=== PATIENT | male | born 1945 | race Caucasian/White ===

== ENCOUNTER 2018-04-17 00:56 | Outpatient (CLI) | payer MEDICARE, BC, SELFPAY ==
[2018-04-17 11:36] LABS: Abs Immature Grans 0.01 k/cumm (0.0-0.09); Absolute Basophil Count 0.03 k/cumm (0.0-0.2); Absolute Eosinophil Count 0.29 k/cumm (0.0-0.7); Absolute Lymphocyte Count 2.02 k/cumm (1.2-3.4); Absolute Monocyte Count 0.85 k/cumm (0.11-0.7); Absolute Neutrophil Count 4.29 k/cumm (1.2-6.7); Basophils % 0.4; Eosinophils % 3.9; HCT 45.5 % (40.0-50.0); Immature Grans % 0.1; Mean Corp. HGB Concentration 35.2 g/dL (32.0-36.0); Mean Corpuscular Hemoglobin 33.8 pg (27.0-33.0); Mean Corpuscular Volume 96.2 fL (80-95); Mean Platelet Volume 9.5 fL (8.0-11.0); Monocytes % 11.3; Neutrophils % 57.3; Platelet Count 246 x1000/uL (130-400); RBC 4.73 m/cumm (4.50-6.00); RBC Distribution Width 12.4 % (11.8-14.1); White Blood Cell Count 7.49 k/cumm (4.4-10.8)
[2018-04-17 12:16] LABS: ALT 37 U/L (12-78); AST 26 U/L (15-37); Albumin 3.2 g/dL (3.4-5.0); Alkaline Phosphatase 69 U/L (46-116); Anion Gap 7.2 mmol/L (3-11); BUN 12 mg/dL (7-18); Bilirubin, Total 0.6 mg/dL (0.2-1.0); CO2 29.8 mmol/L (21.0-32.0); CREATININE 1.07 mg/dL (0.70-1.30); Calcium 8.5 mg/dL (8.5-10.1); Chloride 100 mmol/L (98-107); Glucose 105 mg/dL (70-100); Potassium 3.7 mmol/L (3.5-5.1); Sodium 137 mmol/L (136-145); Total Protein 6.4 g/dL (6.4-8.2)
== END 2018-04-17 01:16 ==
PROVIDERS: PCP Emergency Medicine; Visit Provider Internal Medicine
DX: M05.9 Rheumatoid arthritis with rheumatoid factor, unspecified (principal); Z79.899 Other long term (current) drug therapy
CPT/HCPCS: 36415; 80053; 85025

== ENCOUNTER 2018-07-15 10:16 | Outpatient (CLI) | payer MEDICARE, BC, SELFPAY ==
[2018-07-15 14:01] LABS: Abs Immature Grans 0.04 k/cumm (0.0-0.09); Absolute Basophil Count 0.05 k/cumm (0.0-0.2); Absolute Eosinophil Count 0.42 k/cumm (0.0-0.7); Absolute Lymphocyte Count 2.13 k/cumm (1.2-3.4); Absolute Monocyte Count 0.98 k/cumm (0.11-0.7); Absolute Neutrophil Count 5.67 k/cumm (1.2-6.7); Basophils % 0.5; Eosinophils % 4.5; HCT 48.7 % (40.0-50.0); HGB 16.9 g/dL (13.5-17.5); Immature Grans % 0.4; Lymphocytes % 22.9; Mean Corp. HGB Concentration 34.7 g/dL (32.0-36.0); Mean Corpuscular Hemoglobin 33.6 pg (27.0-33.0); Mean Corpuscular Volume 96.8 fL (80-95); Mean Platelet Volume 9.9 fL (8.0-11.0); Monocytes % 10.5; Neutrophils % 61.2; Platelet Count 205 x1000/uL (130-400); RBC 5.03 m/cumm (4.50-6.00); White Blood Cell Count 9.29 k/cumm (4.4-10.8)
[2018-07-15 15:12] LABS: ALT 44 U/L (12-78); AST 29 U/L (15-37); Albumin 3.7 g/dL (3.4-5.0); Alkaline Phosphatase 70 U/L (46-116); Anion Gap 11.5 mmol/L (3-11); BUN 9 mg/dL (7-18); Bilirubin, Total 0.8 mg/dL (0.2-1.0); CO2 26.5 mmol/L (21.0-32.0); CREATININE 1.07 mg/dL (0.70-1.30); Calcium 9.4 mg/dL (8.5-10.1); Chloride 101 mmol/L (98-107); Glucose 97 mg/dL (70-100); Potassium 3.8 mmol/L (3.5-5.1); Sodium 139 mmol/L (136-145); Total Protein 7.1 g/dL (6.4-8.2)
== END 2018-07-15 10:36 ==
LOC: LBN 10:27 → LBO 13:21
PROVIDERS: PCP Emergency Medicine; Visit Provider Internal Medicine
DX: M05.9 Rheumatoid arthritis with rheumatoid factor, unspecified (principal); Z79.899 Other long term (current) drug therapy
CPT/HCPCS: 36415; 80053; 85025

== ENCOUNTER 2018-10-01 02:27 | Outpatient (CLI) | payer MEDICARE, BC, SELFPAY ==
[2018-10-01 14:58] LABS: Abs Immature Grans 0.02 k/cumm (0.0-0.09); Absolute Basophil Count 0.03 k/cumm (0.0-0.2); Absolute Lymphocyte Count 2.38 k/cumm (1.2-3.4); Absolute Monocyte Count 0.76 k/cumm (0.11-0.7); Absolute Neutrophil Count 4.82 k/cumm (1.2-6.7); Basophils % 0.4; Eosinophils % 3.6; HCT 45.6 % (40.0-50.0); HGB 16.3 g/dL (13.5-17.5); Immature Grans % 0.2; Lymphocytes % 28.6; Mean Corp. HGB Concentration 35.7 g/dL (32.0-36.0); Mean Corpuscular Hemoglobin 34.2 pg (27.0-33.0); Mean Corpuscular Volume 95.6 fL (80-95); Mean Platelet Volume 9.4 fL (8.0-11.0); Monocytes % 9.1; Neutrophils % 58.1; Platelet Count 248 x1000/uL (130-400); RBC 4.77 m/cumm (4.50-6.00); RBC Distribution Width 12.2 % (11.8-14.1); White Blood Cell Count 8.31 k/cumm (4.4-10.8)
[2018-10-01 16:52] LABS: ALT 50 U/L (12-78); AST 38 U/L (15-37); Albumin 3.4 g/dL (3.4-5.0); Alkaline Phosphatase 69 U/L (46-116); Anion Gap 8.4 mmol/L (3-11); BUN 11 mg/dL (7-18); Bilirubin, Total 0.6 mg/dL (0.2-1.0); CO2 29.6 mmol/L (21.0-32.0); CREATININE 1.06 mg/dL (0.70-1.30); Calcium 8.7 mg/dL (8.5-10.1); Chloride 96 mmol/L (98-107); Glucose 105 mg/dL (70-100); Potassium 3.8 mmol/L (3.5-5.1); Sodium 134 mmol/L (136-145); Total Protein 6.8 g/dL (6.4-8.2)
== END 2018-10-01 02:47 ==
PROVIDERS: PCP Emergency Medicine; Visit Provider Internal Medicine
DX: M05.9 Rheumatoid arthritis with rheumatoid factor, unspecified (principal); Z79.899 Other long term (current) drug therapy
CPT/HCPCS: 36415; 80053; 85025

== ENCOUNTER 2018-12-24 02:07 | Outpatient (CLI) | payer MEDICARE, BC, SELFPAY ==
[2018-12-24 14:09] LABS: Abs Immature Grans 0.02 k/cumm (0.0-0.09); Absolute Basophil Count 0.04 k/cumm (0.0-0.2); Absolute Eosinophil Count 0.18 k/cumm (0.0-0.7); Absolute Lymphocyte Count 2.42 k/cumm (1.2-3.4); Basophils % 0.4; HCT 45.7 % (40.0-50.0); HGB 16.2 g/dL (13.5-17.5); Immature Grans % 0.2; Lymphocytes % 26.4; Mean Corp. HGB Concentration 35.4 g/dL (32.0-36.0); Mean Corpuscular Hemoglobin 33.8 pg (27.0-33.0); Mean Corpuscular Volume 95.4 fL (80-95); Mean Platelet Volume 9.3 fL (8.0-11.0); Monocytes % 10.9; Neutrophils % 60.1; Platelet Count 293 x1000/uL (130-400); RBC 4.79 m/cumm (4.50-6.00); RBC Distribution Width 12.6 % (11.8-14.1); White Blood Cell Count 9.16 k/cumm (4.4-10.8)
[2018-12-24 15:45] LABS: ALT 52 U/L (12-78); AST 34 U/L (15-37); Albumin 3.4 g/dL (3.4-5.0); Alkaline Phosphatase 78 U/L (46-116); Anion Gap 6.6 mmol/L (3-11); BUN 11 mg/dL (7-18); Bilirubin, Total 0.6 mg/dL (0.2-1.0); CO2 29.4 mmol/L (21.0-32.0); CREATININE 1.06 mg/dL (0.70-1.30); Calcium 8.8 mg/dL (8.5-10.1); Chloride 97 mmol/L (98-107); Glucose 90 mg/dL (70-100); Potassium 4.1 mmol/L (3.5-5.1); Sodium 133 mmol/L (136-145); Total Protein 6.8 g/dL (6.4-8.2)
== END 2018-12-24 02:27 ==
PROVIDERS: PCP Emergency Medicine; Visit Provider Internal Medicine
DX: M05.9 Rheumatoid arthritis with rheumatoid factor, unspecified (principal); Z79.899 Other long term (current) drug therapy
CPT/HCPCS: 36415; 80053; 85025

== ENCOUNTER 2019-04-08 09:17 | Outpatient (CLI) | payer MEDICARE, BC, SELFPAY ==
[2019-04-08 12:43] LABS: Abs Immature Grans 0.01 k/cumm (0.0-0.09); Absolute Basophil Count 0.03 k/cumm (0.0-0.2); Absolute Eosinophil Count 0.18 k/cumm (0.0-0.7); Absolute Lymphocyte Count 2.02 k/cumm (1.2-3.4); Absolute Monocyte Count 0.72 k/cumm (0.11-0.7); Absolute Neutrophil Count 4.15 k/cumm (1.2-6.7); Basophils % 0.4; Eosinophils % 2.5; HCT 48.7 % (40.0-50.0); HGB 16.7 g/dL (13.5-17.5); Immature Grans % 0.1; Lymphocytes % 28.4; Mean Corp. HGB Concentration 34.3 g/dL (32.0-36.0); Mean Corpuscular Hemoglobin 33.7 pg (27.0-33.0); Mean Corpuscular Volume 98.2 fL (80-95); Mean Platelet Volume 9.7 fL (8.0-11.0); Monocytes % 10.1; Neutrophils % 58.5; Platelet Count 304 x1000/uL (130-400); RBC 4.96 m/cumm (4.50-6.00); RBC Distribution Width 12.5 % (11.8-14.1); White Blood Cell Count 7.11 k/cumm (4.4-10.8)
[2019-04-08 13:31] LABS: ALT 62 U/L (16-63); AST 41 U/L (15-37); Albumin 3.3 g/dL (3.4-5.0); Alkaline Phosphatase 70 U/L (46-116); Anion Gap 6.9 mmol/L (3-11); BUN 14 mg/dL (7-18); Bilirubin, Total 0.7 mg/dL (0.2-1.0); CO2 31.1 mmol/L (21.0-32.0); CREATININE 1.07 mg/dL (0.70-1.30); Calcium 8.8 mg/dL (8.5-10.1); Chloride 100 mmol/L (98-107); Glucose 85 mg/dL (70-100); Potassium 4.2 mmol/L (3.5-5.1); Sodium 138 mmol/L (136-145); Total Protein 6.6 g/dL (6.4-8.2)
== END 2019-04-08 09:37 ==
PROVIDERS: PCP Emergency Medicine; Visit Provider Internal Medicine
DX: M05.9 Rheumatoid arthritis with rheumatoid factor, unspecified (principal); Z79.899 Other long term (current) drug therapy
CPT/HCPCS: 36415; 80048; 80053; 85025

== ENCOUNTER 2019-07-09 08:38 | Outpatient (CLI) | payer MEDICARE, BC, SELFPAY ==
[2019-07-09 12:39] LABS: Abs Immature Grans 0.01 k/cumm (0.0-0.09); Absolute Basophil Count 0.03 k/cumm (0.0-0.2); Absolute Eosinophil Count 0.26 k/cumm (0.0-0.7); Absolute Lymphocyte Count 2.33 k/cumm (1.2-3.4); Absolute Monocyte Count 0.69 k/cumm (0.11-0.7); Absolute Neutrophil Count 4.25 k/cumm (1.2-6.7); Basophils % 0.4; Eosinophils % 3.4; HGB 15.5 g/dL (13.5-17.5); Immature Grans % 0.1; Lymphocytes % 30.8; Mean Corp. HGB Concentration 34.4 g/dL (32.0-36.0); Mean Corpuscular Hemoglobin 33.7 pg (27.0-33.0); Mean Corpuscular Volume 97.8 fL (80-95); Mean Platelet Volume 9.5 fL (8.0-11.0); Monocytes % 9.1; Neutrophils % 56.2; Platelet Count 312 x1000/uL (130-400); RBC Distribution Width 12.6 % (11.8-14.1); White Blood Cell Count 7.57 k/cumm (4.4-10.8)
[2019-07-09 13:07] LABS: ALT 52 U/L (16-63); AST 35 U/L (15-37); Albumin 3.4 g/dL (3.4-5.0); Alkaline Phosphatase 67 U/L (46-116); Anion Gap 7.1 mmol/L (3-11); BUN 14 mg/dL (7-18); Bilirubin, Total 0.6 mg/dL (0.2-1.0); CO2 29.9 mmol/L (21.0-32.0); CREATININE 1.09 mg/dL (0.70-1.30); Calcium 8.7 mg/dL (8.5-10.1); Chloride 102 mmol/L (98-107); Glucose 135 mg/dL (74-106); Potassium 3.8 mmol/L (3.5-5.1); Sodium 139 mmol/L (136-145); Total Protein 6.6 g/dL (6.4-8.2)
== END 2019-07-09 08:58 ==
PROVIDERS: PCP Emergency Medicine; Visit Provider Internal Medicine
DX: M05.9 Rheumatoid arthritis with rheumatoid factor, unspecified (principal); Z79.899 Other long term (current) drug therapy
CPT/HCPCS: 36415; 80053; 85025

== ENCOUNTER 2019-08-03 15:40 | Outpatient (CLI) | payer MEDICARE, BC, SELFPAY ==
--- NOTE | 2019-08-03 15:30 | DI.RAD_ITS ---
EXAM: XR CHEST 2V PA AND LATERAL INDICATION: PNEUMONIA J06.9 ACUTE UPPER RESPIRATORY INFECTION. COMPARISON: CHEST 2 VIEWS PA,LAT from 02/01/2015 CHEST WITHOUT CONTRAST from 02/13/2016 CHEST WITHOUT CONTRAST from 02/13/2016 TECHNIQUE: 2D digital imaging was performed. FINDINGS: Heart size is normal. Lungs appear clear. No infiltrate or effusion is seen. There are fibrotic brittany nges, greatest peripherally. IMPRESSION: No acute abnormality.
[2019-08-03 16:07] LABS: Abs Immature Grans 0.02 k/cumm (0.0-0.09); Absolute Basophil Count 0.05 k/cumm (0.0-0.2); Absolute Eosinophil Count 0.19 k/cumm (0.0-0.7); Absolute Lymphocyte Count 2.06 k/cumm (1.2-3.4); Absolute Monocyte Count 1.04 k/cumm (0.11-0.7); Basophils % 0.7; Eosinophils % 2.5; HCT 47.1 % (40.0-50.0); Immature Grans % 0.3 %; Lymphocytes % 26.9; Mean Corpuscular Volume 91.5 fL (80-95); Mean Platelet Volume 8.8 fL (8.0-11.0); Monocytes % 13.6; Platelet Count 312 x1000/uL (130-400); RBC 5.15 m/cumm (4.50-6.00); RBC Distribution Width 12.2 % (11.8-14.1); White Blood Cell Count 7.66 k/cumm (4.4-10.8)
[2019-08-03 16:32] LABS: HGB 17.6 g/dL (13.5-17.5)
[2019-08-03 16:33] LABS: Mean Corp. HGB Concentration 36.4 g/dL (32.0-36.0)
[2019-08-03 16:44] LABS: ESR 16 mm/hr (1-20)
[2019-08-03 16:59] LABS: ALT 71 U/L (16-63); AST 54 U/L (15-37); Albumin 3.6 g/dL (3.4-5.0); Alkaline Phosphatase 80 U/L (46-116); Bilirubin, Direct 0.24 mg/dL (0.00-0.20); Bilirubin, Total 0.8 mg/dL (0.2-1.0)
[2019-08-04 20:57] LABS: Legionella Ag Detection Urine Negative (Negative)
== END 2019-08-03 16:00 ==
PROVIDERS: PCP Emergency Medicine; Visit Provider Emergency Medicine
DX: J06.9 Acute upper respiratory infection, unspecified (principal)
CPT/HCPCS: 36415; 80076; 85652; 87449; 71046; 85025

== ENCOUNTER 2019-08-08 23:16 | Outpatient (REF) | payer MEDICARE, BC, SELFPAY | END 2019-08-08 23:36 | LOC: LBN 23:16 | PROVIDERS: PCP Emergency Medicine; Visit Provider Emergency Medicine | DX: J18.9 Pneumonia, unspecified organism (principal) | CPT/HCPCS: 87449 ==

== ENCOUNTER 2019-08-17 07:00 | Outpatient (CLI) | payer MEDICARE, BC, SELFPAY ==
[2019-08-17 14:08] LABS: D-Dimer 282 ng/mlFEU (<500)
== END 2019-08-17 07:20 ==
PROVIDERS: PCP Emergency Medicine; Visit Provider Emergency Medicine
DX: R05 Cough (principal); R07.81 Pleurodynia
CPT/HCPCS: 36415; 85379

== ENCOUNTER 2019-10-08 08:40 | Outpatient (CLI) | payer MEDICARE, BC, SELFPAY ==
[2019-10-08 11:35] LABS: Abs Immature Grans 0.01 k/cumm (0.0-0.09); Absolute Basophil Count 0.04 k/cumm (0.0-0.2); Absolute Eosinophil Count 0.33 k/cumm (0.0-0.7); Absolute Monocyte Count 1.11 k/cumm (0.11-0.7); Absolute Neutrophil Count 4.57 k/cumm (1.2-6.7); Basophils % 0.5; Eosinophils % 4.1; HCT 47.2 % (40.0-50.0); HGB 16.5 g/dL (13.5-17.5); Immature Grans % 0.1 %; Lymphocytes % 23.9; Mean Corpuscular Hemoglobin 33.1 pg (27.0-33.0); Mean Corpuscular Volume 94.6 fL (80-95); Mean Platelet Volume 9.3 fL (8.0-11.0); Monocytes % 13.9; Neutrophils % 57.5; Platelet Count 336 x1000/uL (130-400); RBC 4.99 m/cumm (4.50-6.00); White Blood Cell Count 7.96 k/cumm (4.4-10.8)
[2019-10-08 12:05] LABS: ALT 53 U/L (16-63); AST 39 U/L (15-37); Albumin 3.7 g/dL (3.4-5.0); Alkaline Phosphatase 80 U/L (46-116); Anion Gap 6.8 mmol/L (3-11); BUN 12 mg/dL (7-18); Bilirubin, Total 0.9 mg/dL (0.2-1.0); CO2 30.2 mmol/L (21.0-32.0); CREATININE 1.01 mg/dL (0.70-1.30); Chloride 98 mmol/L (98-107); Glucose 87 mg/dL (74-106); Potassium 3.9 mmol/L (3.5-5.1); Sodium 135 mmol/L (136-145); Total Protein 7.3 g/dL (6.4-8.2)
== END 2019-10-08 09:00 ==
PROVIDERS: PCP Emergency Medicine; Visit Provider Internal Medicine
DX: M05.9 Rheumatoid arthritis with rheumatoid factor, unspecified (principal); Z79.899 Other long term (current) drug therapy
CPT/HCPCS: 36415; 80053; 85025

== ENCOUNTER 2019-12-14 03:06 | Outpatient (CLI) | payer MEDICARE, BC, SELFPAY ==
[2019-12-14 13:42] LABS: Abs Immature Grans 0.02 k/cumm (0.0-0.09); Absolute Basophil Count 0.04 k/cumm (0.0-0.2); Absolute Eosinophil Count 0.21 k/cumm (0.0-0.7); Absolute Lymphocyte Count 2.28 k/cumm (1.2-3.4); Absolute Monocyte Count 0.87 k/cumm (0.11-0.7); Absolute Neutrophil Count 4.46 k/cumm (1.2-6.7); Basophils % 0.5; Eosinophils % 2.7; HCT 49.7 % (40.0-50.0); HGB 17.3 g/dL (13.5-17.5); Immature Grans % 0.3 %; Lymphocytes % 28.9; Mean Corp. HGB Concentration 34.8 g/dL (32.0-36.0); Mean Corpuscular Hemoglobin 32.9 pg (27.0-33.0); Mean Corpuscular Volume 94.5 fL (80-95); Mean Platelet Volume 9.4 fL (8.0-11.0); Neutrophils % 56.6; Platelet Count 308 x1000/uL (130-400); RBC 5.26 m/cumm (4.50-6.00); RBC Distribution Width 12.6 % (11.8-14.1); White Blood Cell Count 7.88 k/cumm (4.4-10.8)
[2019-12-14 14:35] LABS: ALT 49 U/L (16-63); AST 31 U/L (15-37); Albumin 3.6 g/dL (3.4-5.0); Alkaline Phosphatase 77 U/L (46-116); Anion Gap 8.8 mmol/L (3-11); BUN 13 mg/dL (7-18); Bilirubin, Total 0.7 mg/dL (0.2-1.0); CO2 29.2 mmol/L (21.0-32.0); CREATININE 1.14 mg/dL (0.70-1.30); Calcium 9.2 mg/dL (8.5-10.1); Chloride 100 mmol/L (98-107); Glucose 99 mg/dL (74-106); Potassium 4.1 mmol/L (3.5-5.1); Sodium 138 mmol/L (136-145)
[2019-12-17 09:30] LABS: Misc Referral (MAYO) See Comments
== END 2019-12-14 03:26 ==
PROVIDERS: Internal Medicine; PCP Emergency Medicine; Visit Provider Emergency Medicine
DX: M05.9 Rheumatoid arthritis with rheumatoid factor, unspecified (principal); Z79.899 Other long term (current) drug therapy
CPT/HCPCS: 36415; 80053; 86769; 85025

== ENCOUNTER 2020-03-10 04:41 | Outpatient (CLI) | payer MEDICARE, BC, SELFPAY ==
[2020-03-10 12:55] LABS: HGB 16.1 g/dL (13.5-17.5); MCH 33.4 pg (27.0-33.0); MCV 95.4 fL (80-95); MPV 9.2 fL (8.0-11.0); Platelet Count 281 10^3/uL (130-400); RBC 4.82 10^6/uL (4.36-5.78); RDW 12.2 % (11.8-14.1); WBC 8.04 10^3/uL (4.4-10.8)
[2020-03-10 14:00] LABS: ALT 41 U/L (16-63); AST 30 U/L (15-37); Albumin 3.6 g/dL (3.4-5.0); Alkaline Phosphatase 65 U/L (46-116); Anion Gap 6.3 mmol/L (3-11); BUN 13 mg/dL (7-18); Bilirubin, Total 0.8 mg/dL (0.2-1.0); CO2 27.7 mmol/L (21.0-32.0); CREATININE 0.95 mg/dL (0.70-1.30); Chloride 100 mmol/L (98-107); Glucose 97 mg/dL (74-106); Potassium 3.9 mmol/L (3.5-5.1); Sodium 134 mmol/L (136-145); Total Protein 6.9 g/dL (6.4-8.2)
== END 2020-03-10 05:01 ==
PROVIDERS: PCP Emergency Medicine; Visit Provider Internal Medicine
DX: M05.9 Rheumatoid arthritis with rheumatoid factor, unspecified (principal); Z79.899 Other long term (current) drug therapy
CPT/HCPCS: 36415; 80053; 85027

== ENCOUNTER 2020-03-29 03:02 | Outpatient (CLI) | payer MEDICARE, BC, SELFPAY ==
--- NOTE | 2020-03-29 13:00 | DI.CT_ITS ---
EXAM: CT CHEST WO CLINICAL HISTORY: INTERSTITIAL PULMONARY DISEASE, J84.9. TECHNIQUE: Imaging protocol: Axial computed tomography images were obtained and coronal and sagittal reformatted images were created and reviewed. COMPARISON: CT CHEST WITHOUT CONTRAST from 02/13/2016 FINDINGS: Tracheobronchial tree: Patent where visualized. Mediastinum and Manuela: No dominant adenopathy or fluid collection. Pulmonary parenchyma: No consolidation or dominant measurable mass. Diffuse interstitial fibrosis. Pleura: No effusion or pneumothorax. Heart: The heart is not dilated. Mild coronary artery calcifications. No pericardial effusion. Aorta: Thoracic aorta non-dilated. Atherosclerosis. Upper abdomen: Unremarkable. Lymph nodes: Within normal limits. Bones:Degenerative changes. There is a stable bone island in the T2 vertebra. Soft tissues: Unremarkable. IMPRESSION: Progressive diffuse interstitial fibrosis since 2016. RADIATION DOSE DELIVERED: 526mGy.cm Total DLP 526mGy.cm Total DLP DATA REPOSITORY: All CT scans at this facility are submitted to the National Radiology Data Registry (NRDR) Dose Index Registry (DIR) with the [employer] (A[employer]). RADIATION OPTIMIZATION: All CT scans at this facility use at least one of these dose optimization te chniques: automated exposure control; mA and/or kV adjustment per patient size (includes targeted exa ms where dose is matched to clinical indication); or iterative reconstruction.
== END 2020-03-29 03:22 ==
PROVIDERS: PCP Emergency Medicine; Visit Provider Internal Medicine
DX: J84.9 Interstitial pulmonary disease, unspecified (principal)
CPT/HCPCS: 71250

== ENCOUNTER 2020-04-11 07:48 | Outpatient (CLI) | payer MEDICARE, BC, SELFPAY ==
[2020-04-12 12:53] LABS: COVID-19 RT-PCR Result NEGATIVE (Negative)
== END 2020-04-11 08:08 ==
PROVIDERS: PCP Emergency Medicine; Visit Provider Family Medicine
DX: Z11.59 Encounter for screening for other viral diseases (principal); Z01.811 Encounter for preprocedural respiratory examination
CPT/HCPCS: U0003

== ENCOUNTER 2020-04-14 01:01 | Outpatient (CLI) | payer MEDICARE, BC, SELFPAY ==
[2020-04-14] MEDS: Inhaler, Assist Device 1 EACH MC (11:28)
[2020-04-14] MEDS: Albuterol HFA 18 GM 200 PUFF INH IH (11:28)
--- NOTE | 2020-04-19 14:15 | W.PFT ---
Date of service: 04/14/20 Time of Service: 10:05 Pulmonary Function Test Result Interpretation Spirometry: Shows no evidence of obstructive airways disease, no bronchodilator response Lung Volumes: Shows mild restriction Diffusion Capacity: Is mildly reduced, this is normal when corrected to alveolar volume Airway Pressure: Normal Impression Mild restrictive lung disease, associated with mild diffusion defect clinical correlation recommended when the study was compared to previous ones from 04/10/2015 and 09/15/2015 the patient has an initial improvement and then as fairly substantial decline in FVC from 2016 there is a 390 cc decline in FVC and 120 cc decline in FEV1 diffusion capacity also had a substantial decline from 2016 total lung capacity declined by 1050 cc from 2016. Clinical Correlation therefore is recommended.
== END 2020-04-14 01:21 ==
PROVIDERS: PCP Emergency Medicine; Visit Provider Internal Medicine
DX: J84.9 Interstitial pulmonary disease, unspecified (principal)
CPT/HCPCS: 94060; 94726; 94729

== ENCOUNTER 2020-06-05 02:59 | Outpatient (CLI) | payer MEDICARE, BC, SELFPAY ==
[2020-06-05 13:18] LABS: Abs Immature Grans 0.03 10^3/uL (0.0-0.06); Absolute Basophil Count 0.05 10^3/uL (0.0-0.2); Absolute Eosinophil Count 0.24 10^3/uL (0.0-0.7); Absolute Lymphocyte Count 1.92 10^3/uL (1.2-3.4); Absolute Monocyte Count 1.28 10^3/uL (0.1-0.8); Absolute Neutrophil Count 4.72 10^3/uL (1.2-6.7); Basophils % 0.6; Eosinophils % 2.9; HCT 47.4 % (40.0-50.0); HGB 16.5 g/dL (13.5-17.5); Immature Grans % 0.4; Lymphocytes % 23.3; MCH 33.3 pg (27.0-33.0); MCHC 34.8 % (32.0-36.0); MCV 95.8 fL (80-95); Monocytes % 15.5; Neutrophils % 57.3; Nucleated RBC 0 %; Platelet Count 308 10^3/uL (130-400); RBC 4.95 10^6/uL (4.36-5.78); RDW 11.9 % (11.8-14.1); RDW-SD 41.1 fL; WBC 8.24 10^3/uL (4.4-10.8)
[2020-06-05 14:15] LABS: ALT 48 U/L (16-63); AST 31 U/L (15-37); Albumin 3.5 g/dL (3.4-5.0); Alkaline Phosphatase 79 U/L (46-116); Anion Gap 7.9 mmol/L (3-11); BUN 12 mg/dL (7-18); Bilirubin, Total 0.7 mg/dL (0.2-1.0); C-Reactive Protein 0.29 mg/dL (0.0-0.3); CO2 30.1 mmol/L (21.0-32.0); CREATININE 1.04 mg/dL (0.70-1.30); Calcium 8.9 mg/dL (8.5-10.1); Chloride 98 mmol/L (98-107); Glucose 61 mg/dL (74-106); Potassium 3.9 mmol/L (3.5-5.1); Sodium 136 mmol/L (136-145)
== END 2020-06-05 03:19 ==
PROVIDERS: PCP Emergency Medicine; Visit Provider Internal Medicine
DX: M05.9 Rheumatoid arthritis with rheumatoid factor, unspecified (principal); Z79.899 Other long term (current) drug therapy
CPT/HCPCS: 36415; 80053; 85025; 86140

== ENCOUNTER 2020-08-25 01:45 | Outpatient (CLI) | payer MEDICARE, BC, SELFPAY ==
[2020-08-25 11:59] LABS: Abs Immature Grans 0.02 10^3/uL (0.0-0.06); Absolute Basophil Count 0.05 10^3/uL (0.0-0.2); Absolute Eosinophil Count 0.12 10^3/uL (0.0-0.7); Absolute Lymphocyte Count 1.84 10^3/uL (1.2-3.4); Absolute Monocyte Count 0.86 10^3/uL (0.1-0.8); Absolute Neutrophil Count 4.23 10^3/uL (1.2-6.7); Basophils % 0.7; Eosinophils % 1.7; HCT 46.1 % (40.0-50.0); HGB 16.1 g/dL (13.5-17.5); Immature Grans % 0.3; Lymphocytes % 25.8; MCH 33.2 pg (27.0-33.0); MCHC 34.9 % (32.0-36.0); MCV 95.1 fL (80-95); Monocytes % 12.1; Neutrophils % 59.4; Nucleated RBC 0 %; Platelet Count 298 10^3/uL (130-400); RBC 4.85 10^6/uL (4.36-5.78); RDW 11.9 % (11.8-14.1); WBC 7.12 10^3/uL (4.4-10.8)
[2020-08-25 12:48] LABS: ALT 50 U/L (16-63); AST 31 U/L (15-37); Albumin 3.3 g/dL (3.4-5.0); Alkaline Phosphatase 72 U/L (46-116); Anion Gap 5.6 mmol/L (3-11); BUN 14 mg/dL (7-18); Bilirubin, Total 0.5 mg/dL (0.2-1.0); C-Reactive Protein 0.14 mg/dL (0.0-0.3); CO2 30.4 mmol/L (21.0-32.0); CREATININE 1.1 mg/dL (0.70-1.30); Chloride 98 mmol/L (98-107); Glucose 95 mg/dL (74-106); Potassium 4.1 mmol/L (3.5-5.1); Sodium 134 mmol/L (136-145); Total Protein 6.8 g/dL (6.4-8.2)
== END 2020-08-25 02:05 ==
PROVIDERS: PCP Emergency Medicine; Visit Provider Internal Medicine
DX: M05.79 Rheumatoid arthritis with rheumatoid factor of multiple sites without organ or systems involvement (principal); Z79.899 Other long term (current) drug therapy
CPT/HCPCS: 36415; 80053; 85025; 86140

== ENCOUNTER 2020-12-26 10:46 | Outpatient (CLI) | payer MEDICARE, BC, SELFPAY ==
[2020-12-26 12:40] LABS: HCT 44.6 % (40.0-50.0); HGB 15.8 g/dL (13.5-17.5); MCH 33.9 pg (27.0-33.0); MCHC 35.4 % (32.0-36.0); MCV 95.7 fL (80-95); MPV 9.6 fL (8.0-11.0); Platelet Count 298 10^3/uL (130-400); RBC 4.66 10^6/uL (4.36-5.78); RDW 12.1 % (11.8-14.1); RDW-SD 41.9 fL; WBC 7.32 10^3/uL (4.4-10.8)
[2020-12-26 12:52] LABS: ALT 49 U/L (16-63); AST 32 U/L (15-37); Albumin 3.4 g/dL (3.4-5.0); Alkaline Phosphatase 75 U/L (46-116); Anion Gap 8.4 mmol/L (3-11); BUN 9 mg/dL (7-18); Bilirubin, Total 0.7 mg/dL (0.2-1.0); CO2 28.6 mmol/L (21.0-32.0); CREATININE 1.1 mg/dL (0.70-1.30); Calcium 8.9 mg/dL (8.5-10.1); Calculated LDL 128 mg/dL (<100); Chloride 99 mmol/L (98-107); Cholesterol 214 mg/dL (<200); Glucose 100 mg/dL (74-106); HDL Cholesterol 68 mg/dL (40-60); Sodium 136 mmol/L (136-145); Total Protein 6.7 g/dL (6.4-8.2); Triglyceride 93 mg/dL (<150)
== END 2020-12-26 10:47 | disposition home or self-care (01) ==
LOC: LOS 10:46
PROVIDERS: Internal Medicine; PCP Emergency Medicine; Visit Provider Emergency Medicine
DX: I10 Essential (primary) hypertension (principal); E78.5 Hyperlipidemia, unspecified; M05.79 Rheumatoid arthritis with rheumatoid factor of multiple sites without organ or systems involvement
CPT/HCPCS: 36415; 80053; 80061; 85027; 86140

== ENCOUNTER 2021-01-26 09:25 | Outpatient (CLI) | payer MEDICARE, BC, SELFPAY ==
--- NOTE | 2021-01-26 09:15 | DI.CT_ITS ---
Exam(s) CT LUMBAR SPINE WO EXAM: CT LUMBAR SPINE WO CLINICAL HISTORY: left leg weakness, R29.898 TECHNIQUE: COMPARISON: No exams were available for comparison FINDINGS: CT examination lumbosacral spine was performed utilizing multi slice acquisition and multiplanar isauro nstruction. No contrast was not administered. Abdominal aorta is of normal diameter. Visualized adrenals and kidneys are unremarkable. No retrope ritoneal adenopathy. There are mild degenerative changes of SI joints bilaterally. There are moderate facet hypertrophic degenerative changes at L4-5 and L5-S1. Mild facet DJD noted in the upper lumbar region. Prominent anterior endplate hypertrophic degenerative changes noted in the thoracolumbar junction region, mild hypertrophic endplate changes identified in remainder of the lumbar spine. No significant findings involving the disc or spinal canal from the T12-L1 level through the L3-4 lev el. No evidence of central canal spinal stenosis, neural foraminal stenosis, or disc herniation. At L4-5, there is a prominent disc bulge. There is prominence of the ligamentum flavum at this level . There appears to be moderate central canal spinal stenosis. There is also probably mild bilateral neural foraminal stenosis at L4-5. At L5-S1 there is loss of disc height consistent with disc degeneration and there is a moderate disc bulge without evidence of disc herniation, central canal spinal stenosis, or neural foraminal stenosi s. IMPRESSION: CT findings suggest moderate central canal spinal stenosis and bilateral neural foraminal stenosis at L4-5 level. No other significant findings apart from multilevel facet and endplate degenerative changes. RADIATION DOSE DELIVERED: 663.01mGy.cm Total DLP RADIATION OPTIMIZATION: All CT scans at this facility use at least one of these dose optimization te chniques: automated exposure control; mA and/or kV adjustment per patient size (includes targeted exa ms where dose is matched to clinical indication); or iterative reconstruction.
--- OUTSIDE RECORDS SUMMARY | 2021-01-26 09:33 | XMS_ITS ---
:1945 Author Care Team Providers Name Role Phone TREASURE HOYT Primary Care Provider [phone] LEE FONTANEZ ([facility]) [employer] [phone] Allergies None recorded. Medications Name Status Start Date Stop Date ? ? amlodipine 2.5 mg tablet Active ? Not magali ilable benzonatate 100 mg capsule Active ? Not a vailable doxycycline monohydrate 100 mg Completed ? 0 03/24/2020 capsule doxycycline monohydrate 100 mg Active ? N ot available tablet fluticasone propionate 50 Active ? Not av ailable mcg/actuation nasal spray,suspension folic acid 1 mg tablet Active ? Not avail able hydrochlorothiazide 25 mg tablet Active ? Not available ibuprofen 600 mg tablet Active ? Not avai lable lorazepam 1 mg tablet Active ? Not availa ble methotrexate sodium 2.5 mg tablet Active ? Not available prednisone 20 mg tablet Completed ? 03/24/20 20 Toprol XL 50 mg tablet,extended release Completed 02/06/20 06 05/12/2015 1 (one) Tablet ER 24HR: Daily Zocor 10 mg tablet Completed 02/05/2006 05/12/2015 1 (one) Tablet: daily Problems Name Status Onset Date Source ? 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 History Hyperlipidemia Active ? History Benign Essential Hypertension Active ? Hi story Interstitial Lung Disease Active ? Histor y Gastroesophageal Reflux Disease Active ? History Hydrocele Active ? History Procedures Date Name Performed by ? 03/24/2020 CT, Chest, W/o Contrast Xray [facility] [address] [place], [place] [address] (Work Place) Results Lab Results None recorded. Past Encounters 03/24/2020 Interstitial Lung Disease Valencia Alcantara MD: [address] [place] [address] [address], [place] [address], Ph. Social History Tobacco Smoking Status Former Smoker (1 PPD) Notes: quit 1984 Vaccine List Vaccine Type influenza, injectable, quadrivalent 04/27/2019 pneumococcal conjugate PCV 13 04/27/2019 pneumococcal polysaccharide PPV23 09/15/2009 Tdap 05/03/2008 Plan of Care Reminders Provider Appointments None ? ? recorded. Lab None ? ? recorded. Referral None ? ? recorded. Procedures None ? ? recorded. Surgeries None ? ? recorded. Imaging None ? ? recorded. Vitals 03/24/2020 02:45PM Office 15 Height Weight BMI Blood Pressure 177.8 cm 90 kg 28.5 kg/m2 120/72 mm[Hg] 02/23/2016 Height Weight Blood Pressure 177.8 cm 90.95 kg 122/68 mm[Hg] 09/29/2015 Height Weight Blood Pressure 177.8 cm 89.36 kg 130/78 mm[Hg] 05/12/2015 Height Weight Blood Pressure 177.8 cm 90.78 kg 156/82 mm[Hg] 03/23/2015 Height Weight Blood Pressure 152.4 cm 90.89 kg 142/78 mm[Hg] 02/26/2006 Weight Blood Pressure 89.81 kg 122/70 mm[Hg]
== END 2021-01-26 09:45 ==
PROVIDERS: PCP Emergency Medicine; Visit Provider Emergency Medicine
DX: M48.061 Spinal stenosis, lumbar region without neurogenic claudication
CPT/HCPCS: 72131

== ENCOUNTER 2021-03-06 09:58 | Outpatient (CLI) | payer MEDICARE, BC, SELFPAY ==
[2021-03-06 12:22] LABS: Abs Immature Grans 0.02 10^3/uL (0.0-0.06); Absolute Basophil Count 0.06 10^3/uL (0.0-0.2); Absolute Lymphocyte Count 2.16 10^3/uL (1.2-3.4); Absolute Neutrophil Count 4.41 10^3/uL (1.2-6.7); Basophils % 0.8; Eosinophils % 2.7; HCT 42.2 % (40.0-50.0); HGB 14.6 g/dL (13.5-17.5); Immature Grans % 0.3; MCH 33.6 pg (27.0-33.0); MCHC 34.6 % (32.0-36.0); MPV 9.8 fL (8.0-11.0); Monocytes % 8.1; Neutrophils % 59.1; Nucleated RBC 0 %; Platelet Count 353 10^3/uL (130-400); RBC 4.35 10^6/uL (4.36-5.78); RDW 11.7 % (11.8-14.1); RDW-SD 41.3 fL; WBC 7.45 10^3/uL (4.4-10.8)
[2021-03-06 12:52] LABS: ALT 30 U/L (16-63); AST 19 U/L (15-37); Albumin 3.5 g/dL (3.4-5.0); Alkaline Phosphatase 53 U/L (46-116); Anion Gap 9.5 mmol/L (3-11); BUN 15 mg/dL (7-18); Bilirubin, Total 0.4 mg/dL (0.2-1.0); C-Reactive Protein 0.13 mg/dL (0.0-0.3); CO2 26.5 mmol/L (21.0-32.0); CREATININE 1.2 mg/dL (0.70-1.30); Calcium 9.1 mg/dL (8.5-10.1); Chloride 103 mmol/L (98-107); Estimated GFR 58.71 (mL/min/1.73m2); Glucose 147 mg/dL (74-106); Potassium 3.7 mmol/L (3.5-5.1); Sodium 139 mmol/L (136-145); Total Protein 6.6 g/dL (6.4-8.2)
[2021-03-06 16:15] LABS: Hemoglobin A1C 5.9 % (<5.7)
== END 2021-03-06 09:59 | disposition home or self-care (01) ==
LOC: LOS 09:59
PROVIDERS: PCP Emergency Medicine; Visit Provider Emergency Medicine
DX: E11.9 Type 2 diabetes mellitus without complications (principal); E03.9 Hypothyroidism, unspecified; R53.83 Other fatigue; F17.200 Nicotine dependence, unspecified, uncomplicated
CPT/HCPCS: 36415; 80053; 83036; 84443; 85025; 86140

== ENCOUNTER 2021-03-30 11:11 | Outpatient (CLI) | payer MEDICARE, BC, SELFPAY ==
[2021-03-30 15:04] LABS: Abs Immature Grans 0.04 10^3/uL (0.0-0.06); Absolute Basophil Count 0.05 10^3/uL (0.0-0.2); Absolute Eosinophil Count 0.16 10^3/uL (0.0-0.7); Absolute Lymphocyte Count 2.06 10^3/uL (1.2-3.4); Absolute Monocyte Count 0.86 10^3/uL (0.1-0.8); Absolute Neutrophil Count 4.63 10^3/uL (1.2-6.7); Basophils % 0.6; Eosinophils % 2.1; HCT 42.5 % (40.0-50.0); HGB 14.6 g/dL (13.5-17.5); Immature Grans % 0.5; Lymphocytes % 26.4; MCH 34.3 pg (27.0-33.0); MCHC 34.4 % (32.0-36.0); MCV 99.8 fL (80-95); MPV 9.1 fL (8.0-11.0); Neutrophils % 59.4; Nucleated RBC 0 %; Platelet Count 277 10^3/uL (130-400); RBC 4.26 10^6/uL (4.36-5.78); RDW 14.1 % (11.8-14.1); RDW-SD 50.7 fL
[2021-03-30 16:43] LABS: ALT 42 U/L (16-63); AST 25 U/L (15-37); Albumin 3.4 g/dL (3.4-5.0); Alkaline Phosphatase 60 U/L (46-116); Anion Gap 6.8 mmol/L (3-11); BUN 13 mg/dL (7-18); Bilirubin, Total 0.6 mg/dL (0.2-1.0); CO2 30.2 mmol/L (21.0-32.0); CREATININE 1.1 mg/dL (0.70-1.30); Calcium 8.8 mg/dL (8.5-10.1); Chloride 97 mmol/L (98-107); Glucose 103 mg/dL (74-106); Sodium 134 mmol/L (136-145); Total Protein 6.6 g/dL (6.4-8.2)
== END 2021-03-30 11:12 | disposition home or self-care (01) ==
LOC: LBO 11:12
PROVIDERS: PCP Emergency Medicine; Visit Provider Internal Medicine
DX: M05.741 Rheumatoid arthritis with rheumatoid factor of right hand without organ or systems involvement (principal); M05.742 Rheumatoid arthritis with rheumatoid factor of left hand without organ or systems involvement
CPT/HCPCS: 36415; 80053; 85025

== ENCOUNTER 2021-06-28 02:52 | Outpatient (CLI) | payer MEDICARE, BC, SELFPAY ==
[2021-06-28 11:14] LABS: Abs Immature Grans 0.02 10^3/uL (0.0-0.06); Absolute Basophil Count 0.06 10^3/uL (0.0-0.2); Absolute Lymphocyte Count 2.16 10^3/uL (1.2-3.4); Absolute Monocyte Count 0.55 10^3/uL (0.1-0.8); Absolute Neutrophil Count 4.55 10^3/uL (1.2-6.7); Basophils % 0.8; Eosinophils % 2.7; HCT 49.4 % (40.0-50.0); HGB 16.5 g/dL (13.5-17.5); Immature Grans % 0.3; Lymphocytes % 28.6; MCH 33.4 pg (27.0-33.0); MCHC 33.4 % (32.0-36.0); MPV 9.7 fL (8.0-11.0); Monocytes % 7.3; Neutrophils % 60.3; Nucleated RBC 0 %; Platelet Count 292 10^3/uL (130-400); RBC 4.94 10^6/uL (4.36-5.78); RDW 11.5 % (11.8-14.1); RDW-SD 41.9 fL; WBC 7.54 10^3/uL (4.4-10.8)
[2021-06-28 11:55] LABS: ALT 45 U/L (16-63); AST 29 U/L (15-37); Albumin 3.4 g/dL (3.4-5.0); Alkaline Phosphatase 61 U/L (46-116); Anion Gap 6.9 mmol/L (3-11); BUN 13 mg/dL (7-18); Bilirubin, Total 0.6 mg/dL (0.2-1.0); CO2 33.1 mmol/L (21.0-32.0); CREATININE 1.1 mg/dL (0.70-1.30); Calcium 8.9 mg/dL (8.5-10.1); Chloride 98 mmol/L (98-107); Glucose 134 mg/dL (74-106); Potassium 3.8 mmol/L (3.5-5.1); Sodium 138 mmol/L (136-145); Total Protein 6.5 g/dL (6.4-8.2)
== END 2021-06-28 02:53 | disposition home or self-care (01) ==
LOC: LOS 02:53
PROVIDERS: PCP Emergency Medicine; Visit Provider Internal Medicine
DX: M05.741 Rheumatoid arthritis with rheumatoid factor of right hand without organ or systems involvement (principal); M05.742 Rheumatoid arthritis with rheumatoid factor of left hand without organ or systems involvement
CPT/HCPCS: 36415; 80053; 85025

== ENCOUNTER 2021-07-05 02:43 | Outpatient (CLI) | payer MEDICARE, BC, SELFPAY ==
[2021-07-05 10:47] LABS: Hemoglobin A1C 5.4 % (<5.7)
[2021-07-05 11:05] LABS: Anion Gap 7.1 mmol/L (3-11); BUN 13 mg/dL (7-18); CO2 31.9 mmol/L (21.0-32.0); Calcium 8.9 mg/dL (8.5-10.1); Chloride 98 mmol/L (98-107); Glucose 99 mg/dL (74-106); Potassium 3.9 mmol/L (3.5-5.1); Sodium 137 mmol/L (136-145)
== END 2021-07-05 02:44 | disposition home or self-care (01) ==
LOC: LBO 02:43
PROVIDERS: PCP Emergency Medicine; Visit Provider Emergency Medicine
DX: I10 Essential (primary) hypertension (principal); Z13.1 Encounter for screening for diabetes mellitus
CPT/HCPCS: 36415; 80048; 83036

== ENCOUNTER 2021-09-20 02:34 | Outpatient (CLI) | payer MEDICARE, BC, SELFPAY ==
[2021-09-20 15:06] LABS: Abs Immature Grans 0.02 10^3/uL (0.0-0.06); Absolute Basophil Count 0.04 10^3/uL (0.0-0.2); Absolute Eosinophil Count 0.21 10^3/uL (0.0-0.7); Absolute Lymphocyte Count 2.06 10^3/uL (1.2-3.4); Absolute Monocyte Count 0.82 10^3/uL (0.1-0.8); Absolute Neutrophil Count 4.89 10^3/uL (1.2-6.7); Basophils % 0.5; Eosinophils % 2.6; HCT 47.8 % (40.0-50.0); HGB 16.4 g/dL (13.5-17.5); Immature Grans % 0.2; Lymphocytes % 25.6; MCH 33.6 pg (27.0-33.0); MCHC 34.3 % (32.0-36.0); MPV 9.1 fL (8.0-11.0); Monocytes % 10.2; Neutrophils % 60.9; Nucleated RBC 0 %; Platelet Count 264 10^3/uL (130-400); RBC 4.88 10^6/uL (4.36-5.78); RDW-SD 43.5 fL; WBC 8.04 10^3/uL (4.4-10.8)
[2021-09-20 16:00] LABS: ALT 43 U/L (16-63); AST 29 U/L (15-37); Albumin 3.5 g/dL (3.4-5.0); Alkaline Phosphatase 66 U/L (46-116); Anion Gap 6.4 mmol/L (3-11); BUN 13 mg/dL (7-18); Bilirubin, Total 0.6 mg/dL (0.2-1.0); CO2 30.6 mmol/L (21.0-32.0); Calcium 8.8 mg/dL (8.5-10.1); Chloride 96 mmol/L (98-107); Glucose 85 mg/dL (74-106); Sodium 133 mmol/L (136-145); Total Protein 6.7 g/dL (6.4-8.2)
== END 2021-09-20 02:35 | disposition home or self-care (01) ==
LOC: LBO 02:34
PROVIDERS: PCP Family Medicine; Visit Provider Internal Medicine
DX: M05.741 Rheumatoid arthritis with rheumatoid factor of right hand without organ or systems involvement (principal)
CPT/HCPCS: 36415; 80053; 85025

== ENCOUNTER 2021-12-28 01:13 | Outpatient (CLI) | payer MEDICARE, BC, SELFPAY ==
[2021-12-28 12:57] LABS: Abs Immature Grans 0.01 10^3/uL (0.0-0.06); Absolute Basophil Count 0.04 10^3/uL (0.0-0.2); Absolute Eosinophil Count 0.22 10^3/uL (0.0-0.7); Absolute Lymphocyte Count 1.75 10^3/uL (1.2-3.4); Absolute Monocyte Count 0.52 10^3/uL (0.1-0.8); Absolute Neutrophil Count 3.45 10^3/uL (1.2-6.7); Basophils % 0.7; Eosinophils % 3.7; HCT 44.8 % (40.0-50.0); HGB 15.6 g/dL (13.5-17.5); Immature Grans % 0.2; Lymphocytes % 29.2; MCH 33.3 pg (27.0-33.0); MCHC 34.8 % (32.0-36.0); MCV 96 fL (80-95); MPV 9.9 fL (8.0-11.0); Monocytes % 8.7; Neutrophils % 57.5; Platelet Count 275 10^3/uL (130-400); RBC 4.68 10^6/uL (4.36-5.78); RDW 12.7 % (11.8-14.1); RDW-SD 44.1 fL; WBC 5.99 10^3/uL (4.4-10.8)
[2021-12-28 13:22] LABS: ALT 39 U/L (16-63); AST 31 U/L (15-37); Albumin 3.4 g/dL (3.4-5.0); Alkaline Phosphatase 63 U/L (46-116); Anion Gap 8.9 mmol/L (3-11); BUN 12 mg/dL (7-18); CO2 28.1 mmol/L (21.0-32.0); CREATININE 1.1 mg/dL (0.70-1.30); Calcium 8.6 mg/dL (8.5-10.1); Chloride 98 mmol/L (98-107); Glucose 126 mg/dL (74-106); Potassium 3.6 mmol/L (3.5-5.1); Sodium 135 mmol/L (136-145); Total Protein 6.4 g/dL (6.4-8.2)
== END 2021-12-28 01:14 | disposition home or self-care (01) ==
LOC: LOS 01:13
PROVIDERS: PCP Family Medicine; Visit Provider Internal Medicine
DX: M05.742 Rheumatoid arthritis with rheumatoid factor of left hand without organ or systems involvement (principal); M05.741 Rheumatoid arthritis with rheumatoid factor of right hand without organ or systems involvement
CPT/HCPCS: 36415; 80053; 85025

== ENCOUNTER 2022-03-27 02:53 | Outpatient (CLI) | payer MEDICARE, BC, SELFPAY ==
[2022-03-27 11:31] LABS: Abs Immature Grans 0.03 10^3/uL (0.0-0.06); Absolute Basophil Count 0.06 10^3/uL (0.0-0.2); Absolute Eosinophil Count 0.19 10^3/uL (0.0-0.7); Absolute Lymphocyte Count 2.34 10^3/uL (1.2-3.4); Absolute Monocyte Count 0.88 10^3/uL (0.1-0.8); Absolute Neutrophil Count 6.01 10^3/uL (1.2-6.7); Basophils % 0.6; HCT 47.9 % (40.0-50.0); HGB 17.3 g/dL (13.5-17.5); Immature Grans % 0.3; Lymphocytes % 24.6; MCH 34.2 pg (27.0-33.0); MCHC 36.1 % (32.0-36.0); MCV 95 fL (80-95); MPV 8.9 fL (8.0-11.0); Monocytes % 9.3; Neutrophils % 63.2; Platelet Count 272 10^3/uL (130-400); RBC 5.06 10^6/uL (4.36-5.78); RDW 11.8 % (11.8-14.1); RDW-SD 40.9 fL; WBC 9.51 10^3/uL (4.4-10.8)
[2022-03-27 12:09] LABS: ALT 40 U/L (16-63); AST 29 U/L (15-37); Albumin 3.5 g/dL (3.4-5.0); Alkaline Phosphatase 64 U/L (46-116); Anion Gap 11.2 mmol/L (3-11); BUN 12 mg/dL (7-18); Bilirubin, Total 1.1 mg/dL (0.2-1.0); CO2 26.8 mmol/L (21.0-32.0); CREATININE 1.2 mg/dL (0.70-1.30); Calcium 8.9 mg/dL (8.5-10.1); Chloride 94 mmol/L (98-107); Glucose 127 mg/dL (74-106); Potassium 3.3 mmol/L (3.5-5.1); Sodium 132 mmol/L (136-145); Total Protein 7.3 g/dL (6.4-8.2)
== END 2022-03-27 02:54 | disposition home or self-care (01) ==
LOC: LBO 02:53
PROVIDERS: PCP Family Medicine; Visit Provider Internal Medicine
DX: M05.741 Rheumatoid arthritis with rheumatoid factor of right hand without organ or systems involvement (principal); M05.742 Rheumatoid arthritis with rheumatoid factor of left hand without organ or systems involvement
CPT/HCPCS: 36415; 80053; 85025

== ENCOUNTER 2022-07-01 04:19 | Outpatient (CLI) | payer MEDICARE, BC, SELFPAY ==
[2022-07-01 13:21] LABS: Abs Immature Grans 0.02 10^3/uL (0.0-0.06); Absolute Basophil Count 0.04 10^3/uL (0.0-0.2); Absolute Eosinophil Count 0.22 10^3/uL (0.0-0.7); Absolute Lymphocyte Count 2.09 10^3/uL (1.2-3.4); Absolute Monocyte Count 1.28 10^3/uL (0.1-0.8); Absolute Neutrophil Count 6.12 10^3/uL (1.2-6.7); Basophils % 0.4; Eosinophils % 2.3; HCT 44.9 % (40.0-50.0); HGB 15.6 g/dL (13.5-17.5); Immature Grans % 0.2; Lymphocytes % 21.4; MCH 33.4 pg (27.0-33.0); MCHC 34.7 % (32.0-36.0); MCV 96 fL (80-95); MPV 8.8 fL (8.0-11.0); Monocytes % 13.1; Neutrophils % 62.6; Platelet Count 283 10^3/uL (130-400); RBC 4.67 10^6/uL (4.36-5.78); RDW 12.3 % (11.8-14.1); RDW-SD 42.5 fL; WBC 9.77 10^3/uL (4.4-10.8)
[2022-07-01 14:15] LABS: ALT 35 U/L (16-63); AST 25 U/L (15-37); Albumin 3.5 g/dL (3.4-5.0); Alkaline Phosphatase 64 U/L (46-116); Anion Gap 5.7 mmol/L (3-11); BUN 14 mg/dL (7-18); Bilirubin, Total 0.6 mg/dL (0.2-1.0); CO2 31.3 mmol/L (21.0-32.0); CREATININE 1.1 mg/dL (0.70-1.30); Calcium 8.9 mg/dL (8.5-10.1); Chloride 95 mmol/L (98-107); Estimated GFR 68.29 (mL/min/1.73m2); Glucose 70 mg/dL (74-106); Potassium 4.2 mmol/L (3.5-5.1); Sodium 132 mmol/L (136-145); Total Protein 6.7 g/dL (6.4-8.2)
[2022-07-01 14:17] LABS: Calculated LDL 118 mg/dL (<100); Cholesterol 206 mg/dL (<200); HDL Cholesterol 68 mg/dL (40-60); Triglyceride 102 mg/dL (<150)
== END 2022-07-01 04:20 | disposition home or self-care (01) ==
PROVIDERS: Nurse Practitioner Family; PCP Family Medicine; Visit Provider Internal Medicine
DX: E78.5 Hyperlipidemia, unspecified (principal); M06.00 Rheumatoid arthritis without rheumatoid factor, unspecified site
CPT/HCPCS: 36415; 80053; 80061; 85025

== ENCOUNTER 2022-09-25 02:47 | Outpatient (CLI) | payer MEDICARE, BC, SELFPAY ==
[2022-09-25 11:08] LABS: Abs Immature Grans 0.08 10^3/uL (0.0-0.06); Absolute Basophil Count 0.05 10^3/uL (0.0-0.2); Absolute Eosinophil Count 0.14 10^3/uL (0.0-0.7); Absolute Lymphocyte Count 3.06 10^3/uL (1.2-3.4); Absolute Monocyte Count 0.98 10^3/uL (0.1-0.8); Absolute Neutrophil Count 6.62 10^3/uL (1.2-6.7); Basophils % 0.5; Eosinophils % 1.3; HCT 48.2 % (40.0-50.0); HGB 16.8 g/dL (13.5-17.5); Immature Grans % 0.7; MCHC 34.9 % (32.0-36.0); MCV 98 fL (80-95); MPV 8.4 fL (8.0-11.0); Neutrophils % 60.5; Platelet Count 305 10^3/uL (130-400); RBC 4.94 10^6/uL (4.36-5.78); RDW 11.9 % (11.8-14.1); RDW-SD 42.9 fL; WBC 10.94 10^3/uL (4.4-10.8)
[2022-09-25 11:46] LABS: ALT 33 U/L (16-63); AST 20 U/L (15-37); Albumin 3.3 g/dL (3.4-5.0); Alkaline Phosphatase 54 U/L (46-116); Anion Gap 6.6 mmol/L (3-11); BUN 21 mg/dL (7-18); Bilirubin, Total 0.6 mg/dL (0.2-1.0); CO2 31.4 mmol/L (21.0-32.0); CREATININE 1.4 mg/dL (0.70-1.30); Chloride 94 mmol/L (98-107); Estimated GFR 51.13 (mL/min/1.73m2); Glucose 73 mg/dL (74-106); Potassium 4.1 mmol/L (3.5-5.1); Sodium 132 mmol/L (136-145); Total Protein 6.4 g/dL (6.4-8.2)
== END 2022-09-25 02:48 | disposition home or self-care (01) ==
PROVIDERS: PCP Family Medicine; Visit Provider Internal Medicine
DX: M06.00 Rheumatoid arthritis without rheumatoid factor, unspecified site (principal)
CPT/HCPCS: 36415; 80053; 85025

== ENCOUNTER → 2022-12-25 10:43 | Outpatient (BNVA) | payer MEDICARE, BC, SELFPAY | PROVIDERS: PCP Family Medicine; Referring Provider Nurse Practitioner Family; Visit Provider Surgery | DX: Z12.11 Encounter for screening for malignant neoplasm of colon (principal); Z86.010 Personal history of colon polyps ==

== ENCOUNTER 2022-12-26 13:52 | Outpatient (CLI) | payer MEDICARE, BC, SELFPAY ==
[2022-12-26 13:19] LABS: Abs Immature Grans 0.03 10^3/uL (0.0-0.06); Absolute Basophil Count 0.04 10^3/uL (0.0-0.2); Absolute Eosinophil Count 0.15 10^3/uL (0.0-0.7); Absolute Lymphocyte Count 2.09 10^3/uL (1.2-3.4); Absolute Monocyte Count 0.98 10^3/uL (0.1-0.8); Absolute Neutrophil Count 5.01 10^3/uL (1.2-6.7); Basophils % 0.5; Eosinophils % 1.8; HGB 16.3 g/dL (13.5-17.5); Immature Grans % 0.4; Lymphocytes % 25.2; MCH 34.5 pg (27.0-33.0); MCHC 36.2 % (32.0-36.0); MCV 95 fL (80-95); MPV 8.6 fL (8.0-11.0); Monocytes % 11.8; Neutrophils % 60.3; Platelet Count 264 10^3/uL (130-400); RBC 4.72 10^6/uL (4.36-5.78); RDW 11.8 % (11.8-14.1); RDW-SD 41.1 fL
[2022-12-26 13:35] LABS: ALT 41 U/L (16-63); AST 35 U/L (15-37); Albumin 3.6 g/dL (3.4-5.0); Alkaline Phosphatase 74 U/L (46-116); Anion Gap 5.1 mmol/L (3-11); BUN 11 mg/dL (7-18); Bilirubin, Total 0.8 mg/dL (0.2-1.0); CO2 30.9 mmol/L (21.0-32.0); CREATININE 1.1 mg/dL (0.70-1.30); Calcium 8.9 mg/dL (8.5-10.1); Chloride 94 mmol/L (98-107); Estimated GFR 68.29 (mL/min/1.73m2); Glucose 106 mg/dL (74-106); Potassium 3.6 mmol/L (3.5-5.1); Sodium 130 mmol/L (136-145)
== END 2022-12-26 13:53 | disposition home or self-care (01) ==
LOC: LBO 13:54
PROVIDERS: PCP Family Medicine; Visit Provider Internal Medicine
DX: M06.00 Rheumatoid arthritis without rheumatoid factor, unspecified site (principal)
CPT/HCPCS: 36415; 80053; 85025

== ENCOUNTER 2023-03-28 03:02 | Outpatient (CLI) | payer MEDICARE, BC, SELFPAY ==
[2023-03-28 14:00] LABS: Abs Immature Grans 0.01 10^3/uL (0.0-0.06); Absolute Basophil Count 0.05 10^3/uL (0.0-0.2); Absolute Lymphocyte Count 2.22 10^3/uL (1.2-3.4); Absolute Monocyte Count 0.95 10^3/uL (0.1-0.8); Absolute Neutrophil Count 3.23 10^3/uL (1.2-6.7); Basophils % 0.8; HCT 48.8 % (40.0-50.0); HGB 17.6 g/dL (13.5-17.5); Immature Grans % 0.2; Lymphocytes % 33.3; MCH 35.1 pg (27.0-33.0); MCHC 36.1 % (32.0-36.0); MCV 97 fL (80-95); MPV 8.9 fL (8.0-11.0); Monocytes % 14.3; Neutrophils % 48.4; Platelet Count 252 10^3/uL (130-400); RBC 5.02 10^6/uL (4.36-5.78); RDW 12.5 % (11.8-14.1); RDW-SD 44.6 fL; WBC 6.66 10^3/uL (4.4-10.8)
[2023-03-28 14:54] LABS: ALT 42 U/L (16-63); AST 31 U/L (15-37); Albumin 3.4 g/dL (3.4-5.0); Alkaline Phosphatase 79 U/L (46-116); Anion Gap 4.1 mmol/L (3-11); BUN 12 mg/dL (7-18); Bilirubin, Total 0.9 mg/dL (0.2-1.0); CO2 30.9 mmol/L (21.0-32.0); Calcium 8.8 mg/dL (8.5-10.1); Chloride 96 mmol/L (98-107); Estimated GFR 76.56 (mL/min/1.73m2); Glucose 91 mg/dL (74-106); Potassium 3.9 mmol/L (3.5-5.1); Sodium 131 mmol/L (136-145)
== END 2023-03-28 03:03 | disposition home or self-care (01) ==
PROVIDERS: PCP Family Medicine; Visit Provider Internal Medicine
DX: M06.00 Rheumatoid arthritis without rheumatoid factor, unspecified site (principal)
CPT/HCPCS: 36415; 80053; 85025

== ENCOUNTER 2023-08-18 04:51 | Outpatient (CLI) | payer MEDICARE, BC, SELFPAY ==
[2023-08-18 14:01] LABS: Abs Immature Grans 0.02 10^3/uL (0.0-0.06); Absolute Basophil Count 0.06 10^3/uL (0.0-0.2); Absolute Eosinophil Count 0.14 10^3/uL (0.0-0.7); Absolute Lymphocyte Count 1.96 10^3/uL (1.2-3.4); Absolute Monocyte Count 0.72 10^3/uL (0.1-0.8); Absolute Neutrophil Count 5.04 10^3/uL (1.2-6.7); Basophils % 0.8; Eosinophils % 1.8; HCT 48.4 % (40.0-50.0); HGB 16.9 g/dL (13.5-17.5); Immature Grans % 0.3; Lymphocytes % 24.7; MCH 34.7 pg (27.0-33.0); MCHC 34.9 % (32.0-36.0); MCV 99 fL (80-95); MPV 8.9 fL (8.0-11.0); Monocytes % 9.1; Neutrophils % 63.3; Platelet Count 273 10^3/uL (130-400); RBC 4.87 10^6/uL (4.36-5.78); RDW 12.6 % (11.8-14.1); RDW-SD 45.8 fL; WBC 7.94 10^3/uL (4.4-10.8)
[2023-08-18 14:33] LABS: ALT 36 U/L (16-63); AST 29 U/L (15-37); Albumin 3.3 g/dL (3.4-5.0); Alkaline Phosphatase 63 U/L (46-116); BUN 10 mg/dL (7-18); Bilirubin, Total 0.7 mg/dL (0.2-1.0); Calcium 8.9 mg/dL (8.5-10.1); Chloride 96 mmol/L (98-107); Estimated GFR 76.08 (mL/min/1.73m2); Glucose 92 mg/dL (74-106); Potassium 3.9 mmol/L (3.5-5.1); Sodium 132 mmol/L (136-145); Total Protein 6.8 g/dL (6.4-8.2)
== END 2023-08-18 04:52 | disposition home or self-care (01) ==
LOC: LBO 04:51
PROVIDERS: PCP Family Medicine; Visit Provider Internal Medicine
DX: M06.00 Rheumatoid arthritis without rheumatoid factor, unspecified site (principal)
CPT/HCPCS: 36415; 80053; 85025

== ENCOUNTER 2023-10-24 01:59 | Outpatient (CLI) | payer MEDICARE, BC, SELFPAY ==
[2023-10-24 10:10] LABS: Abs Immature Grans 0.01 10^3/uL (0.0-0.06); Absolute Basophil Count 0.05 10^3/uL (0.0-0.2); Absolute Eosinophil Count 0.17 10^3/uL (0.0-0.7); Absolute Lymphocyte Count 1.84 10^3/uL (1.2-3.4); Absolute Monocyte Count 0.47 10^3/uL (0.1-0.8); Absolute Neutrophil Count 3.76 10^3/uL (1.2-6.7); Basophils % 0.8; Eosinophils % 2.7; HCT 49.1 % (40.0-50.0); HGB 17.1 g/dL (13.5-17.5); Immature Grans % 0.2; Lymphocytes % 29.2; MCH 35.8 pg (27.0-33.0); MCHC 34.8 % (32.0-36.0); MCV 103 fL (80-95); MPV 9.1 fL (8.0-11.0); Monocytes % 7.5; Neutrophils % 59.6; Platelet Count 251 10^3/uL (130-400); RBC 4.78 10^6/uL (4.36-5.78); RDW 12.1 % (11.8-14.1); RDW-SD 45.7 fL
[2023-10-24 10:38] LABS: ALT 45 U/L (16-63); AST 39 U/L (15-37); Albumin 3.3 g/dL (3.4-5.0); Alkaline Phosphatase 75 U/L (46-116); Anion Gap 5.6 mmol/L (3-11); BUN 12 mg/dL (7-18); Bilirubin, Total 0.9 mg/dL (0.2-1.0); CO2 31.4 mmol/L (21.0-32.0); CREATININE 1.1 mg/dL (0.70-1.30); Calcium 8.8 mg/dL (8.5-10.1); Chloride 97 mmol/L (98-107); Estimated GFR 67.86 (mL/min/1.73m2); Glucose 134 mg/dL (74-106); Sodium 134 mmol/L (136-145); Total Protein 6.7 g/dL (6.4-8.2)
== END 2023-10-24 02:00 | disposition home or self-care (01) ==
LOC: LBO 01:59
PROVIDERS: PCP Family Medicine; Visit Provider Internal Medicine
DX: M06.00 Rheumatoid arthritis without rheumatoid factor, unspecified site (principal)
CPT/HCPCS: 36415; 80053; 85025

== ENCOUNTER 2023-12-26 13:16 | Outpatient (CLI) | payer MEDICARE, BC, SELFPAY ==
[2023-12-26 13:16] LABS: Abs Immature Grans 0.02 10^3/uL (0.0-0.06); Absolute Basophil Count 0.05 10^3/uL (0.0-0.2); Absolute Eosinophil Count 0.18 10^3/uL (0.0-0.7); Absolute Lymphocyte Count 2.03 10^3/uL (1.2-3.4); Absolute Monocyte Count 1.03 10^3/uL (0.1-0.8); Absolute Neutrophil Count 4.65 10^3/uL (1.2-6.7); Basophils % 0.6 %; Eosinophils % 2.3 %; HCT 44.5 % (40.0-50.0); HGB 15.8 g/dL (13.5-17.5); Immature Grans % 0.3 %; Lymphocytes % 25.5 %; MCH 35.5 pg (27.0-33.0); MCHC 35.5 % (32.0-36.0); MCV 100 fL (80-95); MPV 8.6 fL (8.0-11.0); Monocytes % 12.9 %; Neutrophils % 58.4 %; Platelet Count 262 10^3/uL (130-400); RBC 4.45 10^6/uL (4.36-5.78); RDW 11.9 % (11.8-14.1); RDW-SD 44.2 fL; WBC 7.96 10^3/uL (4.4-10.8)
[2023-12-26 14:06] LABS: ALT 35 U/L (16-63); AST 29 U/L (15-37); Albumin 3.3 g/dL (3.4-5.0); Alkaline Phosphatase 69 U/L (46-116); Anion Gap 7.7 mmol/L (3-11); BUN 14 mg/dL (7-18); Bilirubin, Total 0.7 mg/dL (0.2-1.0); CO2 29.3 mmol/L (21.0-32.0); CREATININE 1.2 mg/dL (0.70-1.30); Calcium 8.9 mg/dL (8.5-10.1); Chloride 96 mmol/L (98-107); Estimated GFR 61.13 (mL/min/1.73m2); Glucose 94 mg/dL (74-106); Potassium 4.2 mmol/L (3.5-5.1); Sodium 133 mmol/L (136-145); Total Protein 6.4 g/dL (6.4-8.2)
== END 2023-12-26 13:17 | disposition home or self-care (01) ==
LOC: LBO 13:17
PROVIDERS: PCP Family Medicine; Visit Provider Internal Medicine
DX: M06.0A Rheumatoid arthritis without rheumatoid factor, other specified site (principal)
CPT/HCPCS: 36415; 80053; 85025

== ENCOUNTER 2024-06-28 03:37 | Outpatient (CLI) | payer MEDICARE, BC, SELFPAY ==
[2024-06-28 16:03] LABS: Abs Immature Grans 0.03 10^3/uL (0.0-0.06); Absolute Basophil Count 0.05 10^3/uL (0.0-0.2); Absolute Eosinophil Count 0.22 10^3/uL (0.0-0.7); Absolute Lymphocyte Count 2.25 10^3/uL (1.2-3.4); Absolute Monocyte Count 0.88 10^3/uL (0.1-0.8); Absolute Neutrophil Count 5.84 10^3/uL (1.2-6.7); Basophils % 0.5 %; Eosinophils % 2.4 %; HCT 45.2 % (40.0-50.0); HGB 16.3 g/dL (13.5-17.5); Immature Grans % 0.3 %; Lymphocytes % 24.3 %; MCH 35.5 pg (27.0-33.0); MCHC 36.1 % (32.0-36.0); MCV 99 fL (80-95); MPV 8.9 fL (8.0-11.0); Monocytes % 9.5 %; Platelet Count 285 10^3/uL (130-400); RBC 4.59 10^6/uL (4.36-5.78); RDW 12.1 % (11.8-14.1); RDW-SD 43.8 fL; WBC 9.27 10^3/uL (4.4-10.8)
[2024-06-28 17:01] LABS: ALT 36 U/L (16-63); AST 30 U/L (15-37); Albumin 3.5 g/dL (3.4-5.0); Alkaline Phosphatase 75 U/L (46-116); Anion Gap 8.3 mmol/L (3-11); BUN 13 mg/dL (7-18); Bilirubin, Total 1.05 mg/dL (0.2-1.0); CO2 29.7 mmol/L (21.0-32.0); CREATININE 1.1 mg/dL (0.70-1.30); Calcium 9.4 mg/dL (8.5-10.1); Chloride 96 mmol/L (98-107); Estimated GFR 67.44 (mL/min/1.73m2); Glucose 94 mg/dL (74-106); Potassium 4.4 mmol/L (3.5-5.1); Sodium 134 mmol/L (136-145); Total Protein 6.5 g/dL (6.4-8.2)
== END 2024-06-28 03:38 | disposition home or self-care (01) ==
PROVIDERS: PCP Family Medicine; Visit Provider Internal Medicine
DX: I10 Essential (primary) hypertension (principal); M06.00 Rheumatoid arthritis without rheumatoid factor, unspecified site
CPT/HCPCS: 36415; 80053; 85025

== ENCOUNTER 2024-09-27 18:09 | Outpatient (CLI) | payer MEDICARE, BC, SELFPAY ==
[2024-09-27 13:39] LABS: Abs Immature Grans 0.02 10^3/uL (0.0-0.06); Absolute Basophil Count 0.06 10^3/uL (0.0-0.2); Absolute Eosinophil Count 0.16 10^3/uL (0.0-0.7); Absolute Lymphocyte Count 1.84 10^3/uL (1.2-3.4); Absolute Monocyte Count 0.83 10^3/uL (0.1-0.8); Absolute Neutrophil Count 5.51 10^3/uL (1.2-6.7); Basophils % 0.7 %; Eosinophils % 1.9 %; HCT 45.8 % (40.0-50.0); HGB 16.3 g/dL (13.5-17.5); Immature Grans % 0.2 %; Lymphocytes % 21.9 %; MCH 35.4 pg (27.0-33.0); MCHC 35.6 % (32.0-36.0); MCV 100 fL (80-95); MPV 8.8 fL (8.0-11.0); Monocytes % 9.9 %; Neutrophils % 65.4 %; Platelet Count 263 10^3/uL (130-400); RDW 11.9 % (11.8-14.1); RDW-SD 43.5 fL; WBC 8.42 10^3/uL (4.4-10.8)
[2024-09-27 14:39] LABS: ALT 29 U/L (16-63); AST 28 U/L (15-37); Albumin 3.4 g/dL (3.4-5.0); Alkaline Phosphatase 79 U/L (46-116); Anion Gap 4.7 mmol/L (3-11); BUN 10 mg/dL (7-18); Bilirubin, Total 0.72 mg/dL (0.2-1.0); CO2 30.3 mmol/L (21.0-32.0); Calcium 9.1 mg/dL (8.5-10.1); Chloride 94 mmol/L (98-107); Estimated GFR 75.61 (mL/min/1.73m2); Glucose 113 mg/dL (74-106); Potassium 4.3 mmol/L (3.5-5.1); Sodium 129 mmol/L (136-145); Total Protein 6.9 g/dL (6.4-8.2)
== END 2024-09-27 18:10 | disposition home or self-care (01) ==
LOC: LBO 18:15
PROVIDERS: PCP Family Medicine; Visit Provider Internal Medicine
DX: M06.00 Rheumatoid arthritis without rheumatoid factor, unspecified site (principal)
CPT/HCPCS: 36415; 80053; 85025

== ENCOUNTER 2024-12-24 00:58 | Outpatient (CLI) | payer MEDICARE, BC, SELFPAY ==
[2024-12-24 13:54] LABS: ALT 37 U/L (16-63); AST 36 U/L (15-37); Albumin 3.3 g/dL (3.4-5.0); Alkaline Phosphatase 63 U/L (46-116); Anion Gap 4.9 mmol/L (3-11); BUN 10 mg/dL (7-18); Bilirubin, Total 0.8 mg/dL (0.2-1.0); CO2 32.1 mmol/L (21.0-32.0); CREATININE 1.1 mg/dL (0.70-1.30); Calcium 8.9 mg/dL (8.5-10.1); Chloride 95 mmol/L (98-107); Estimated GFR 67.44 (mL/min/1.73m2); Glucose 78 mg/dL (74-106); Potassium 4.1 mmol/L (3.5-5.1); Sodium 132 mmol/L (136-145); Total Protein 6.6 g/dL (6.4-8.2)
== END 2024-12-24 00:59 | disposition home or self-care (01) ==
PROVIDERS: PCP Family Medicine; Visit Provider Internal Medicine
DX: M06.00 Rheumatoid arthritis without rheumatoid factor, unspecified site (principal)
CPT/HCPCS: 36415; 80053

== ENCOUNTER 2025-02-17 02:55 | Outpatient (CLI) | payer MEDICARE, BC, SELFPAY ==
[2025-02-17 15:00] LABS: Abs Immature Grans 0.02 10^3/uL (0.0-0.06); HCT 43.7 % (40.0-50.0); HGB 15.5 g/dL (13.5-17.5); Immature Grans % 0.2 %; MCH 35.5 pg (27.0-33.0); MCHC 35.5 % (32.0-36.0); MCV 100 fL (80-95); MPV 8.8 fL (8.0-11.0); Platelet Count 265 10^3/uL (130-400); RBC 4.37 10^6/uL (4.36-5.78); RDW 11.7 % (11.8-14.1); RDW-SD 43.0 fL; WBC 8.63 10^3/uL (4.4-10.8)
[2025-02-17 15:55] LABS: ALT 33 U/L (16-63); AST 31 U/L (15-37); Albumin 3.6 g/dL (3.4-5.0); Alkaline Phosphatase 73 U/L (46-116); Anion Gap 5.2 mmol/L (3-11); BUN 16 mg/dL (7-18); Bilirubin, Total 0.8 mg/dL (0.2-1.0); CO2 30.8 mmol/L (21.0-32.0); Calcium 9.3 mg/dL (8.5-10.1); Chloride 90 mmol/L (98-107); Estimated GFR 75.61 (mL/min/1.73m2); Glucose 99 mg/dL (74-106); Potassium 4.1 mmol/L (3.5-5.1); Sodium 126 mmol/L (136-145); Total Protein 7.0 g/dL (6.4-8.2)
== END 2025-02-17 02:56 | disposition home or self-care (01) ==
PROVIDERS: PCP Family Medicine; Visit Provider Internal Medicine
DX: M06.00 Rheumatoid arthritis without rheumatoid factor, unspecified site (principal)
CPT/HCPCS: 36415; 80053; 85025

== ENCOUNTER 2025-02-22 04:44 | Outpatient (CLI) | payer MEDICARE, BC, SELFPAY ==
[2025-02-22 12:36] LABS: Anion Gap 7.7 mmol/L (3-11); BUN 14 mg/dL (7-18); CO2 28.3 mmol/L (21.0-32.0); Calcium 9.2 mg/dL (8.5-10.1); Chloride 94 mmol/L (98-107); Estimated GFR 75.61 (mL/min/1.73m2); Glucose 137 mg/dL (74-106); Potassium 4.3 mmol/L (3.5-5.1); Sodium 130 mmol/L (136-145)
== END 2025-02-22 04:45 | disposition home or self-care (01) ==
LOC: LOS 04:44
PROVIDERS: PCP Family Medicine; Visit Provider Family Medicine
DX: E87.1 Hypo-osmolality and hyponatremia (principal)
CPT/HCPCS: 36415; 80048

== ENCOUNTER 2025-03-31 14:47 | Outpatient (CLI) | payer MEDICARE, BC, SELFPAY ==
[2025-03-31 12:57] LABS: Abs Immature Grans 0.03 10^3/uL (0.0-0.06); HCT 45.5 % (40.0-50.0); HGB 15.8 g/dL (13.5-17.5); Immature Grans % 0.3 %; MCH 35.0 pg (27.0-33.0); MCHC 34.7 % (32.0-36.0); MCV 101 fL (80-95); MPV 8.4 fL (8.0-11.0); Platelet Count 220 10^3/uL (130-400); RBC 4.51 10^6/uL (4.36-5.78); RDW 11.9 % (11.8-14.1); RDW-SD 44.8 fL; WBC 8.81 10^3/uL (4.4-10.8)
[2025-03-31 13:26] LABS: ALT 32 U/L (16-63); AST 30 U/L (15-37); Albumin 3.3 g/dL (3.4-5.0); Alkaline Phosphatase 60 U/L (46-116); Anion Gap 1.3 mmol/L (3-11); BUN 13 mg/dL (7-18); Bilirubin, Total 0.6 mg/dL (0.2-1.0); CO2 32.7 mmol/L (21.0-32.0); Calcium 9.1 mg/dL (8.5-10.1); Chloride 97 mmol/L (98-107); Estimated GFR 85.80 (mL/min/1.73m2); Glucose 94 mg/dL (74-106); Potassium 4.5 mmol/L (3.5-5.1); Sodium 131 mmol/L (136-145); Total Protein 6.6 g/dL (6.4-8.2)
== END 2025-03-31 14:48 | disposition home or self-care (01) ==
LOC: LBO 14:48
PROVIDERS: PCP Family Medicine; Visit Provider Internal Medicine
DX: M06.00 Rheumatoid arthritis without rheumatoid factor, unspecified site (principal)
CPT/HCPCS: 36415; 80053; 85025

== ENCOUNTER 2025-07-06 00:38 | Outpatient (CLI) | payer MEDICARE, BC, SELFPAY ==
[2025-07-06 11:43] LABS: Abs Immature Grans 0.02 10^3/uL (0.0-0.06); HCT 44.8 % (40.0-50.0); HGB 15.7 g/dL (13.5-17.5); Immature Grans % 0.3 %; MCH 34.4 pg (27.0-33.0); MCHC 35.0 % (32.0-36.0); MCV 98 fL (80-95); MPV 8.5 fL (8.0-11.0); Platelet Count 279 10^3/uL (130-400); RBC 4.56 10^6/uL (4.36-5.78); RDW 11.7 % (11.8-14.1); RDW-SD 42.6 fL; WBC 8.00 10^3/uL (4.4-10.8)
[2025-07-06 12:24] LABS: ALT 25 U/L (10-49); AST 36 U/L (<34); Albumin 4.1 g/dL (3.2-5.0); Alkaline Phosphatase 67 U/L (46-116); Anion Gap 5.9 mmol/L (3-11); BUN 15 mg/dL (9-23); Bilirubin, Total 0.6 mg/dL (0.2-1.2); CO2 28.8 mmol/L (20.0-31.0); Calcium 8.9 mg/dL (8.3-10.6); Chloride 96 mmol/L (98-107); Glucose 87 mg/dL (74-106); Potassium 3.8 mmol/L (3.5-5.1); Sodium 131 mmol/L (136-145); Total Protein 6.7 g/dL (5.7-8.2)
== END 2025-07-06 00:39 | disposition home or self-care (01) ==
LOC: LBO 00:38
PROVIDERS: PCP Family Medicine; Visit Provider Internal Medicine
DX: M06.00 Rheumatoid arthritis without rheumatoid factor, unspecified site (principal)
CPT/HCPCS: 36415; 80053; 94060; 94726; 94729; 85025

== ENCOUNTER 2025-07-06 01:04 | Outpatient (CLI) | payer MEDICARE, BC, SELFPAY ==
[2025-07-06] MEDS: Levalbuterol HFA 15 GM INH 4 PUFF IH (17:57)
[2025-07-06] MEDS: Inhaler, Assist Device 1 EACH MC (17:57)
--- NOTE | 2025-07-13 12:26 | W.PFT ---
Date of service: 07/06/25 Time of Service: 12:54 Pulmonary Function Test Result Indications: Cough, rheumatoid lung Impression 1. Good patient effort was noted. ATS standards for reproducibility were met. 2. Spirometry did not show any obstructive lung disease 3. Following the administration of a bronchodilator there was not a significant response 4. TLC is reduced at 69% predicted, consistent with mild-moderate restrictive lung disease 5. DLCO was 56%, consistent with a moderate defect in alveolar gas exchange Conclusion - mild-moderate restriction with moderate diffusion defect. Underlying interstitial lung disease should be considered
== END 2025-07-06 01:05 | disposition home or self-care (01) ==
LOC: RT 01:05
PROVIDERS: PCP Family Medicine; Visit Provider Family Medicine
DX: R05.3 Chronic cough (principal); Z87.891 Personal history of nicotine dependence; J98.4 Other disorders of lung
CPT/HCPCS: 94060; 94726; 94729